=== PATIENT | female | born 1985 | race Caucasian/White ===

== ENCOUNTER 2017-02-08 13:20 | Emergency (ER) | payer MEDICAID ==
[~2017-02-08] VITALS: Ht 172.7 cm; Wt 128.8 kg
[2017-02-08 13:25] VITALS: BP 125/71
[2017-02-08] MEDS ORDERED: FAMOTIDINE 20 MG/2 ML IVP ONE (14:00)
[2017-02-08] MEDS ORDERED: MAALOX/HYOSCYAMINE/LIDOCAINE 45 ML BOTTLE PO ONE (14:00)
[2017-02-08] MEDS ORDERED: SODIUM CHLORIDE FLUSH 10ML SYR IVF ONE (14:00)
[2017-02-08] MEDS ORDERED: ONDANSETRON 2MG/ML, 2ML IVPush ONE (14:00)
[2017-02-08] MEDS ORDERED: SODIUM CHLORIDE 0.9% 1,000ML IVBOLUS ONE (14:00)
[2017-02-08] MEDS ORDERED: ONDANSETRON 2MG/ML, 2ML ONE ×2 (14:10→15:32)
[2017-02-08] MEDS ORDERED: MAALOX/HYOSCYAMINE/LIDOCAINE 45 ML BOTTLE ONE (14:10)
[2017-02-08] MEDS ORDERED: FAMOTIDINE 20 MG/2 ML ONE (14:10)
[2017-02-08 14:24] LABS: HEMOGLOBIN 14.6 g/dL (11.7-16.4)
[2017-02-08 14:35] LABS: BLOOD UREA NITROGEN 10 mg/dL (7-18)
[2017-02-08 14:38] LABS: ASPARTATE AMINO TRANSFERASE 13 U/L (15-37)
[2017-02-08 15:18] LABS: PATH.CAST-FLAG NOT PRESENT; SPERM-FLAG NOT PRESENT; SRC-FLAG NOT PRESENT; XTAL-FLAG NOT PRESENT; YLC-FLAG NOT PRESENT
[2017-02-08] MEDS ORDERED: HYDROmorphone 1 MG/ML, 1ML ONE (15:32)
== END 2017-02-08 15:54 | disposition home or self-care (01) ==
LOC: ED 13:46
DX: R19.7 Diarrhea, unspecified (principal); R11.2 Nausea with vomiting, unspecified; J00 Acute nasopharyngitis [common cold]; B34.9 Viral infection, unspecified; E87.6 Hypokalemia; Z90.710 Acquired absence of both cervix and uterus
CPT/HCPCS: 36415; 71020; 80053; 81001; 83690; 85025; 87086; 96361; 96374; 96375; 99285; J2405; J7030; S0028

== ENCOUNTER 2017-11-08 14:10 | Emergency (ER) | payer MEDICAID ==
[~2017-11-08] VITALS: Ht 172.7 cm; Wt 135.4 kg
[2017-11-08 14:16] VITALS: BP 149/76
[2017-11-08] MEDS ORDERED: DEXAMETHASONE 4 MG TABLET ONE (14:52)
[2017-11-08] MEDS ORDERED: DEXAMETHASONE 4 MG TABLET PO ONE (15:00)
== END 2017-11-08 15:21 | disposition home or self-care (01) ==
LOC: ED 15:10
DX: J02.9 Acute pharyngitis, unspecified (principal); J00 Acute nasopharyngitis [common cold]; H60.11 Cellulitis of right external ear; F17.200 Nicotine dependence, unspecified, uncomplicated
CPT/HCPCS: 99283